=== PATIENT | male | born 1995 | race Caucasian/White ===

== ENCOUNTER 2023-08-30 09:42 | Emergency (ER) | payer BC ==
[2023-08-30] MEDS: Iopamidol 612 MG/ML 100 ML Bottle IVPUSH ONE (11:32)
[2023-08-30 11:51] LABS: A/G RATIO 1.1 (1-2); ALBUMIN 4.1 g/dl (3.4-5.0); ANION GAP 13.4 (5-15); CALCIUM 9.3 mg/dL (8.5-10.1); EST CRCL DRUG DOSING (CG) 94.56 mL/min; POTASSIUM,K 4.4 mEq/L (3.5-5.1); PROTEIN TOTAL,TP 7.9 g/dl (6.4-8.2); URIC ACID 10.2 mg/dL (3.5-7.2)
[2023-08-30] MEDS: Naproxen 500 MG Tab PO ONE (13:30)
== END 2023-08-30 13:38 | disposition home or self-care (01) ==
LOC: JD.ED 09:42
DX: M10.9 Gout, unspecified (principal)
CPT/HCPCS: 36415; 73701-26-RT; 73701-RT; 80053; 84550; 99284; A9270-GY; Q9967